=== PATIENT | male | born 1970 | race Caucasian/White ===

== ENCOUNTER 2020-08-17 05:54 | Day surgery (SDC) | payer BC ==
[2020-08-17] MEDS ORDERED: Lactated Ringers 1,000 ML IV SCH (06:30)
[2020-08-17] MEDS ORDERED: DIPRIVAN 200 MG/20 ML IV ONE ×2 (08:17→08:29)
[2020-08-17] MEDS ORDERED: Versed 2 MG/2 ML Injection ONE (08:17)
[2020-08-17 09:16] VITALS: O2SAT 98
[2020-08-17 09:38] VITALS: PULSE 72
[2020-08-17 09:49] VITALS: BP 132/68
--- NOTE | 2020-08-17 09:59 | OP ---
SURGERY DATE/TIME: 08/17/2020818 PREOPERATIVE DIAGNOSIS: Screening colonoscopy. POSTOPERATIVE DIAGNOSIS: Cecal polyp x1. PROCEDURE: Colonoscopy. SURGEON: Niraj Gallegos M.D. ANESTHESIA: MAC by Ra Pate CRNA. ESTIMATED BLOOD LOSS: Minimal. SPECIMENS: Hot forceps polypectomy from cecum. DESCRIPTION OF PROCEDURE: After informed written consent was obtained, the patient was taken to the endoscopy suite. He underwent monitored anesthesia and was placed in left lateral decubitus position. After adequate level of anesthesia was titrated to the desired level of consciousness, a digital rectal exam showed normal sphincter tone and no internal lesions. The scope was inserted into the rectum and sequentially the entire colonic mucosa was traversed. The cecum was reached and verified with direct visualization of ileocecal valve. There was a small sessile polyp in close proximity of the ileocecal valve. It was grasped with forceps, cauterized and removed in its entirety. It was removed in two pieces and sent for pathology testing with good hemostasis and complete removal of the lesion. Upon withdrawal careful mucosal inspection revealed no gross abnormalities. Prior to withdrawal retroflexion was performed and showed no internal lesions. The scope was removed and the patient was transferred to the recovery room in good condition.
== END 2020-08-17 09:40 | disposition home or self-care (01) ==
LOC: SDC 05:54
PROVIDERS: ATTEND Family Medicine
DX: Z12.11 Encounter for screening for malignant neoplasm of colon (principal); D12.0 Benign neoplasm of cecum
CPT/HCPCS: J2250; J2704

== ENCOUNTER 2022-09-16 02:11 | Inpatient (IN) | payer BC ==
[2022-09-16] MEDS ORDERED: SUBLIMAZE 100 MCG/2 ML IV ONE (02:41)
[2022-09-16] MEDS ORDERED: Sodium Chloride 0.9% 1000 ML 1,000 ML IV STA (02:41)
--- NOTE | 2022-09-16 02:47 | ERPHSYRPT ---
- History of Present Illness Time Seen by Provider: 09/16/22 02:44 Historian: patient Exam Limitations: no limitations Patient Subjective Stated Complaint: pt states he has been having pain in his rt lower abd since last night- approx 20 hours Triage Nursing Assessment: pt alert and oriented, answers questions approp. pt ambulatory with steady gait noted. respirations nonlabored. skin warm and dry. face flushed. abd soft, p[t reports tenderness to rt lower abd, no rebound tenderness noted. bowel sonds present x4. Physician History: Patient is 52-year-old male with significant past medical history of hypertension started having a right lower quadrant abdominal pain approximately 20 hours ago which started getting worse within 6 to 8 hours associated with fever and chills. Patient has 1 bowel movement approximately 4 to 5 hours ago which did not show any blood or pus. Patient denies any nausea or vomiting. Patient has somewhat loss of appetite. Timing/Duration: today Quality: cramping Abdominal Pain Onset Location: RLQ Pain Radiation: no radiation Severity of Pain-Max: moderate Severity of Pain-Current: moderate Modifying Factors: Improves With: nothing Associated Symptoms: loss of appetite Previous symptoms: no prior history Allergies/Adverse Reactions: No Known Drug Allergies Allergy (Verified 09/16/22 02:37) Home Medications: Lisinopril 20 mg [Zestril 20 MG] 20 mg PO DAILY 09/16/22 [History] Hx Tetanus, Diphtheria Vaccination/Date Given: Yes Hx Influenza Vaccination/Date Given: No Hx Pneumococcal Vaccination/Date Given: No Immunizations Up to Date: Yes Travel Risk - International Travel Have you traveled outside of the country in past 3 weeks: No - Coronavirus Screening Are you exhibiting any of the following symptoms?: No Close contact with a COVID-19 positive Pt in past 14-21 Days: No - Vaccine Status Have you recieved a Covid-19 vaccination: Yes 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: [email or web address] - Vaccination Dates Date of 2cond Vaccination (if applicable): 2020 - Review of Systems Constitutional: No Fever, No Chills Eyes: No Symptoms Ears, Nose, & Throat: No Symptoms Respiratory: No Cough, No Dyspnea Cardiac: No Chest Pain, No Edema, No Syncope Abdominal/Gastrointestinal: Abdominal Pain, Appetite Changes, No Nausea, No Vomiting, No Diarrhea Genitourinary Symptoms: No Dysuria Musculoskeletal: No Back Pain, No Neck Pain Skin: No Rash Neurological: No Dizziness, No Focal Weakness, No Sensory Changes Psychological: No Symptoms Endocrine: No Symptoms All Other Systems: Reviewed and Negative - Past Medical History Pertinent Past Medical History: Yes Neurological History: No Pertinent History ENT History: No Pertinent History Cardiac History: Hypertension Respiratory History: Sleep Apnea Endocrine Medical History: No Pertinent History Musculoskeletal History: No Pertinent History GI Medical History: No Pertinent History History: No Pertinent History Psycho-Social History: No Pertinent History Male Reproductive Disorders: No Pertinent History - Past Surgical History Past Surgical History: Yes Neuro Surgical History: No Pertinent History Cardiac: No Pertinent History Respiratory: No Pertinent History Gastrointestinal: Hernia Repair Genitourinary: No Pertinent History Musculoskeletal: Other Male Surgical History: No Pertinent History Other Surgical History: left bicep tendon, left knee - Social History Smoking Status: Former smoker Exposure to second hand smoke: No Drug Use: none Patient Lives Alone: No - Nursing Vital Signs Nursing Vital Signs: Initial Vital Signs Temperature 99.7 F 09/16/22 02:23 Pulse Rate 120 H 09/16/22 02:23 Respiratory Rate 18 09/16/22 02:23 Blood Pressure 133/82 09/16/22 02:23 O2 Sat by Pulse Oximetry 95 09/16/22 02:23 Pain Scale Pain Intensity 0 - Physical Exam General Appearance: no apparent distress, alert Eye Exam: PERRL/EOMI, eyes nml inspection Ears, Nose, Throat Exam: normal ENT inspection, pharynx normal, moist mucous membranes Neck Exam: normal inspection, non-tender, supple, full range of motion Respiratory Exam: normal breath sounds, lungs clear, No respiratory distress Cardiovascular Exam: regular rate/rhythm, normal heart sounds Gastrointestinal/Abdomen Exam: tenderness (right lower quadrant), guarding (R LQ), No distention, No mass Back Exam: normal inspection, normal range of motion, No CVA tenderness, No vertebral tenderness Extremity Exam: normal inspection, normal range of motion, pelvis stable Neurologic Exam: alert, oriented x 3, cooperative, normal mood/affect, nml cerebellar function, sensation nml, No motor deficits Skin Exam: normal color, warm, dry SpO2: 95 - Course Nursing assessment & vital signs reviewed: Yes - CT Exams Abdomen/Pelvis CT Interpretation: Tele-radiologist Report Ordered Tests: Active Orders 24 hr Category Date Time Status ABDOMEN AND PELVIS W/0 CONTRAS [CT] Stat Exams 09/16/22 02:42 Taken AMYLASE Stat Lab 09/16/22 02:45 Completed CBC W DIFF Stat Lab 09/16/22 02:45 Completed CMP Stat Lab 09/16/22 02:45 Completed LIPASE Stat Lab 09/16/22 02:45 Completed UA W/RFX UR CULTURE Stat Lab 09/16/22 02:45 Completed Medication Summary Discontinued Medications Generic Name Dose Route Start Last Admin Trade Name Patrickq PRN Reason Stop Dose Admin Fentanyl Citrate 50 mcg 09/16/22 02:41 09/16/22 02:52 Fentanyl Citrate 100 Mcg/2 Ml* Vial IV 09/16/22 02:42 50 mcg STAT ONE Administration Fentanyl Citrate Confirm 09/16/22 02:51 Fentanyl Citrate 100 Mcg/2 Ml* Vial Administered 09/16/22 02:52 Dose 100 mcg .ROUTE .STK-MED ONE Hydromorphone HCl Confirm 09/16/22 03:41 Hydromorphone 1 Mg/1ml Inj 1 Mg/Ml Syringe Administered 09/16/22 03:42 Dose 1 mg .ROUTE .STK-MED ONE Hydromorphone HCl 1 mg 09/16/22 03:44 09/16/22 03:47 Hydromorphone 1 Mg/1ml Inj 1 Mg/Ml Syringe IV 09/16/22 03:45 1 mg STAT ONE Administration Sodium Chloride 1,000 mls @ 999 mls/hr 09/16/22 02:41 09/16/22 02:53 Sodium Chloride 0.9% 1000 Ml IV 09/16/22 03:41 999 mls/hr .Q1H1M STA Administration Sodium Chloride Confirm 09/16/22 02:51 Sodium Chloride 0.9% 1000 Ml Administered 09/16/22 02:52 Dose 1,000 mls @ ud .ROUTE .STK-MED ONE Ceftriaxone Sodium/Dextrose 1 g in 50 mls @ 100 mls/hr 09/16/22 03:59 09/16/22 04:04 Rocephin 1 Gm-D5w 50 Ml Bag IV 09/16/22 04:28 100 mls/hr STAT STA 100 mls/hr Administration Ceftriaxone Sodium/Dextrose Confirm 09/16/22 04:02 Rocephin 1 Gm-D5w 50 Ml Bag Administered 09/16/22 04:03 Dose 1 g in 50 mls @ ud IV .[facility] ONE Lab/Rad Data: Laboratory Result Diagrams 09/16/22 02:45 09/16/22 02:45 Laboratory Results 09/16/22 09/16/22 09/16/22 Range/Units 03:30 02:45 02:45 WBC (4.0-10.5) x10^3/uL RBC (4.1-5.6) x10^6/uL Hgb (12.5-18.0) g/dL Hct (42-50) % MCV (78-100) fL MCH (26-32) pg MCHC (32-36) g/dL RDW (11.5-14.0) % Plt Count (150-450) x10^3/uL MPV (7.5-11.0) fL Gran % (36.0-66.0) % Immature Gran % (Auto) (0.00-0.4) % Nucleat RBC Rel Count (0.00-0.1) % Eos # (Auto) (0-0.5) x10^3/uL Immature Gran # (Auto) (0.00-0.03) x10^3u/L Absolute Lymphs (auto) (1.0-4.6) x10^3/uL Absolute Monos (auto) (0.0-1.3) x10^3/uL Absolute Nucleated RBC (0.00-0.01) x10^3u/L Lymphocytes % (24.0-44.0) % Monocytes % (0.0-12.0) % Eosinophils % (0.00-5.0) % Basophils % (0.0-0.4) % Absolute Granulocytes (1.4-6.9) x10^3/uL Basophils # (0-0.4) x10^3/uL Sodium 135 L (137-145) mmol/L Potassium 3.9 (3.5-5.1) mmol/L Chloride 105 (98-107) mmol/L Carbon Dioxide 21 L (22-30) mmol/L Anion Gap 13.3 (5-15) MEQ/L BUN 16 (9-20) mg/dL Creatinine 0.96 (0.66-1.25) mg/dL Estimated GFR > 60.0 ML/MIN Glucose 155 H (74-106) mg/dL Calcium 8.9 (8.4-10.2) mg/dL Total Bilirubin 0.70 (0.2-1.3) mg/dL AST 33 (17-59) U/L ALT 41 (0-50) U/L Alkaline Phosphatase 77 (38-126) U/L Serum Total Protein 7.4 (6.3-8.2) g/dL Albumin 4.2 (3.5-5.0) g/dL Amylase 80 (30-110) U/L Lipase 168 (23-300) U/L Urine Color Yellow (Yellow) Urine Appearance Clear (Clear) Urine pH 5.5 (4.6-8.0) Ur Specific [place] 1.025 (1.005-1.030) Urine Protein Trace A (Negative) Urine Glucose (UA) Negative (Negative) mg/dL Urine Ketones Negative (Negative) Urine Blood Negative (Negative) Urine Nitrite Negative (Negative) Urine Bilirubin Negative (Negative) Urine Urobilinogen 0.2 (0.2) mg/dL Ur Leukocyte Esterase Negative (Negative) U Hyaline Cast (Auto) NONE SEEN (0-2) /LPF Urine Microscopic RBC 0-2 (0-5) /HPF Urine Microscopic WBC 0-2 (0-5) /HPF Ur Epithelial Cells None Seen (None Seen) /HPF Urine Bacteria None Seen (None Seen) /HPF Urine Culture Reflexed NO (NO) Influenza Type A Ag NEGATIVE (NEGATIVE) Influenza Type B Ag NEGATIVE (NEGATIVE) RSV (PCR) NEGATIVE (Negative) SARS-CoV-2 (PCR) NEGATIVE (NEGATIVE) 09/16/22 Range/Units 02:45 WBC 15.2 H (4.0-10.5) x10^3/uL RBC 4.52 (4.1-5.6) x10^6/uL Hgb 13.8 (12.5-18.0) g/dL Hct 40.8 L (42-50) % MCV 90.3 (78-100) fL MCH 30.5 (26-32) pg MCHC 33.8 (32-36) g/dL RDW 12.4 (11.5-14.0) % Plt Count 244 (150-450) x10^3/uL MPV 10.3 (7.5-11.0) fL Gran % 85.9 H (36.0-66.0) % Immature Gran % (Auto) 0.5 H (0.00-0.4) % Nucleat RBC Rel Count 0.0 (0.00-0.1) % Eos # (Auto) 0 (0-0.5) x10^3/uL Immature Gran # (Auto) 0.07 H (0.00-0.03) x10^3u/L Absolute Lymphs (auto) 1.20 (1.0-4.6) x10^3/uL Absolute Monos (auto) 0.81 (0.0-1.3) x10^3/uL Absolute Nucleated RBC 0.00 (0.00-0.01) x10^3u/L Lymphocytes % 7.9 L (24.0-44.0) % Monocytes % 5.3 (0.0-12.0) % Eosinophils % 0.0 (0.00-5.0) % Basophils % 0.4 (0.0-0.4) % Absolute Granulocytes 13.05 H (1.4-6.9) x10^3/uL Basophils # 0.06 (0-0.4) x10^3/uL Sodium (137-145) mmol/L Potassium (3.5-5.1) mmol/L Chloride (98-107) mmol/L Carbon Dioxide (22-30) mmol/L Anion Gap (5-15) MEQ/L BUN (9-20) mg/dL Creatinine (0.66-1.25) mg/dL Estimated GFR ML/MIN Glucose (74-106) mg/dL Calcium (8.4-10.2) mg/dL Total Bilirubin (0.2-1.3) mg/dL AST (17-59) U/L ALT (0-50) U/L Alkaline Phosphatase (38-126) U/L Serum Total Protein (6.3-8.2) g/dL Albumin (3.5-5.0) g/dL Amylase (30-110) U/L Lipase (23-300) U/L Urine Color (Yellow) Urine Appearance (Clear) Urine pH (4.6-8.0) Ur Specific [place] (1.005-1.030) Urine Protein (Negative) Urine Glucose (UA) (Negative) mg/dL Urine Ketones (Negative) Urine Blood (Negative) Urine Nitrite (Negative) Urine Bilirubin (Negative) Urine Urobilinogen (0.2) mg/dL Ur Leukocyte Esterase (Negative) U Hyaline Cast (Auto) (0-2) /LPF Urine Microscopic RBC (0-5) /HPF Urine Microscopic WBC (0-5) /HPF Ur Epithelial Cells (None Seen) /HPF Urine Bacteria (None Seen) /HPF Urine Culture Reflexed (NO) Influenza Type A Ag (NEGATIVE) Influenza Type B Ag (NEGATIVE) RSV (PCR) (Negative) SARS-CoV-2 (PCR) (NEGATIVE) - Progress Progress: unchanged Discussed with Dr.: Other (Dr Rony Wilson) Counseled pt/family regarding: lab results, diagnosis, need for follow-up, rad results Medical Desision Making - Discussion of managment Reviewed:: Test results, Need for additional workup Agreed on:: Treatment plan, need for follow-up, place in obs Will see patient: in hospital - Diagnostic Testing Diagnostic test were ordered, analyzed, and reviewed by me: Yes Radiological Interpretation: Discussed w/ radiologist - Risk of complications The pt has a mod risk of morbidity or mortality based on: Need for minor surgical intervention in patient with know risk factors - Departure Departure Disposition: Observation Clinical Impression: Acute appendicitis Qualifiers: Acute appendicitis type: with localized peritonitis Appendicitis gangrene presence: without gangrene Appendicitis perforation presence: without perforation Appendicitis abscess presence: without abscess Qualified Code(s): K35.30 - Acute appendicitis with localized peritonitis, without perforation or gangrene Condition: Stable Critical Care Time: Yes Critical Care Time(excluding separately billable procedures): Critical 30-74 mins Referrals: GHADA DONAHUE MD [Primary Care Provider] - Follow up/PCP as directed Instructions: Appendicitis in Adults
[2022-09-16 02:48] LABS: Absolute Neutrophil Ct (ANC) 13.05 x10^3/uL (1.4-6.9); BASOPHIL % 0.4 % (0.0-0.4); Basophil (Absolute #) 0.06 x10^3/uL (0-0.4); Eosinophil (Absolute #) 0 x10^3/uL (0-0.5); Hematocrit 40.8 % (42-50); Hemoglobin 13.8 g/dL (12.5-18.0); IMMATURE GRAN # 0.07 x10^3u/L (0.00-0.03); IMMATURE GRAN % 0.5 % (0.00-0.4); Lymphocytes % 7.9 % (24.0-44.0); Mean Cell Volume 90.3 fL (78-100); Mean Corpuscular Hemoglobin 30.5 pg (26-32); Mean Corpuscular Hgb Concent. 33.8 g/dL (32-36); Mean Platelet Volume 10.3 fL (7.5-11.0); Monocyte (Absolute #) 0.81 x10^3/uL (0.0-1.3); Monocytes % 5.3 % (0.0-12.0); Neutrophil % 85.9 % (36.0-66.0); Platelet Count 244 x10^3/uL (150-450); Red Blood Count 4.52 x10^6/uL (4.1-5.6); Red Cell Distribution Width 12.4 % (11.5-14.0); White Blood Count 15.2 x10^3/uL (4.0-10.5)
[2022-09-16] MEDS ORDERED: Sodium Chloride 0.9% 1000 ML 1,000 ML ONE (02:51)
[2022-09-16] MEDS ORDERED: SUBLIMAZE 100 MCG/2 ML ONE (02:51)
[2022-09-16 02:54] LABS: ALBUMIN 4.2 g/dL (3.5-5.0); ALKALINE PHOSPHATASE 77 U/L (38-126); AMYLASE 80 U/L (30-110); ANION GAP 13.3 MEQ/L (5-15); BLOOD UREA NITROGEN 16 mg/dL (9-20); CHLORIDE 105 mmol/L (98-107); Calcium 8.9 mg/dL (8.4-10.2); Carbon Dioxide 21 mmol/L (22-30); Creatinine 1 0.96 mg/dL (0.66-1.25); EST GLOMERULAR FILTRATION RATE > 60.0 ML/MIN; Glucose 155 mg/dL (74-106); LIPASE 168 U/L (23-300); Potassium 3.9 mmol/L (3.5-5.1); SGOT/AST 33 U/L (17-59); SGPT/ALT 41 U/L (0-50); SODIUM 135 mmol/L (137-145); Total Protein 7.4 g/dL (6.3-8.2)
[2022-09-16 02:55] LABS: Appearance Clear (Clear); Bacteria None Seen /HPF (None Seen); Bilirubin Negative (Negative); Blood Negative (Negative); Epithelial Cells None Seen /HPF (None Seen); Glucose, Urine Negative (Negative); Hyaline Casts NONE SEEN /LPF (0-2); Ketones Negative (Negative); Leukocyte Esterase Negative (Negative); Nitrite Negative (Negative); Ph 5.5 (4.6-8.0); Protein,Urine Dip Trace (Negative); RBC 0-2 /HPF (0-5); Specific Gravity 1.025 (1.005-1.030); Urobilinogen 0.2 mg/dL (0.2); WBC 0-2 /HPF (0-5)
[2022-09-16 03:07] LABS: ADD URINE CULTURE? NO (NO)
[2022-09-16] MEDS ORDERED: Hydromorphone 1 mg/ml Injection ONE ×2 (03:41→13:06)
[2022-09-16] MEDS ORDERED: Hydromorphone 1 mg/ml Injection IV ONE (03:44)
[2022-09-16] MEDS ORDERED: ROCEPHIN 1 Gm-D5w 50 ml Bag** 1 G/50 ML IVPB IV STA (03:59)
[2022-09-16] MEDS ORDERED: ROCEPHIN 1 Gm-D5w 50 ml Bag** 1 G/50 ML IVPB IV ONE (04:02)
[2022-09-16 04:09] LABS: INFLUENZA A NEGATIVE (NEGATIVE); INFLUENZA B NEGATIVE (NEGATIVE); RESPIRATORY SYNCTIAL VIRUS NEGATIVE (Negative); SARS-CoV-2 Xpert Express NEGATIVE (NEGATIVE)
[2022-09-16] MEDS ORDERED: Zofran 4 MG/2 ML VIAL IV PRN (05:16)
[2022-09-16] MEDS ORDERED: PIPERACILLIN/TAZOBACTAM IV ONE (05:59)
[2022-09-16] MEDS ORDERED: Sodium Chloride 100ML MINI-BAG PLUS 100 ML IV ONE (06:00)
[2022-09-16] MEDS: PIPERACILLIN/TAZOBACTAM 3.375 GM in Sodium Chloride 100ML MINI-BAG PLUS 100 ML IV SCH ×4 (06:11→23:49)
[2022-09-16] MEDS: Sodium Chloride 0.9% 1000 ML 1,000 ML IV SCH ×2 (06:12→13:47)
[2022-09-16] MEDS: Hydromorphone 1 mg/ml Injection IV PRN ×2 (06:37→10:02)
--- NOTE | 2022-09-16 08:48 | XRAY ---
Indication: Right lower quadrant pain. Fever, nausea, and chills. Multiple contiguous images obtained through the abdomen and pelvis without contrast. Comparison: None Lung bases demonstrates small right lower lobe calcified granuloma. No infiltrate or effusion. Heart not enlarged. Stomach distended with food/fluid. Noncontrasted stomach and bowel loops appear nonobstructed. Abnormal prominent appendix up to 1.5 cm with periappendiceal stranding and tiny free fluid favoring acute appendicitis. Base of appendix demonstrates small appendicolith. No walled off fluid collection or free air. Incidental diffuse fatty liver and 5.2 cm left renal cyst. Remaining liver, gallbladder, pancreas, spleen, adrenal glands, kidneys, ureters, and bladder are unremarkable for noncontrast exam. Minimal aortoiliac calcifications without AAA. Osseous structures intact with minimal degenerative changes throughout the thoracolumbar spine. Impression: 1. CT findings favoring acute appendicitis. 2. Incidental fatty liver, left renal cyst, and old granulomatous disease. Comment: Preliminary interpretation made by C. No critical discrepancy.
[2022-09-16] MEDS ORDERED: MEFOXIN 2 GM PREMIX** 2 GM/50 ML ML IV SCH (10:00)
[2022-09-16] MEDS ORDERED: SUBLIMAZE 250 MCG/5 ML ONE (10:41)
[2022-09-16] MEDS ORDERED: Sensorcaine 0.25% 10 ML ONE ×2 (10:41→11:37)
[2022-09-16] MEDS ORDERED: Xylocaine-Mpf 2% 5 Ml Vial ONE (10:43)
[2022-09-16] MEDS ORDERED: TORAdol 30 mg Injection ONE (10:43)
[2022-09-16] MEDS ORDERED: Decadron 4 MG INJ ONE (10:43)
[2022-09-16] MEDS ORDERED: Zofran 4 MG/2 ML VIAL ONE (10:43)
[2022-09-16] MEDS ORDERED: Zemuron 100 MG/10 ML ONE ×3 (10:43→11:25)
[2022-09-16] MEDS ORDERED: BRIDION 200MG/2ML IV ONE (10:43)
[2022-09-16] MEDS ORDERED: DIPRIVAN 200 MG/20 ML IV ONE (10:43)
--- NOTE | 2022-09-16 11:04 | PCM.CONS ---
History of Present Illness - Reason for Consult Chief Complaint: acute appendicitis Requesting Provider: GHADA DONAHUE Consulting Provider: TONY WAKEFIELD MD History of Present Illness: is a 52 year old male. hx per chart review and d/w pt 2/18 am. started having abdominal pain migrated to RLQ. subjective fever chills at home. nausea. no emesis. to ED. workup with ct confirmed appendicitis. "Patient Subjective Stated Complaint: pt states he has been having pain in his rt lower abd since last night- approx 20 hours Triage Nursing Assessment: pt alert and oriented, answers questions approp. pt ambulatory with steady gait noted. respirations nonlabored. skin warm and dry. face flushed. abd soft, p[t reports tenderness to rt lower abd, no rebound tenderness noted. bowel sonds present x4. Physician History: Patient is 52-year-old male with significant past medical history of hypertension started having a right lower quadrant abdominal pain approximately 20 hours ago which started getting worse within 6 to 8 hours associated with fever and chills. Patient has 1 bowel movement approximately 4 to 5 hours ago which did not show any blood or pus. Patient denies any nausea or vomiting. Patient has somewhat loss of appetite. Timing/Duration: today Quality: cramping Abdominal Pain Onset Location: RLQ Pain Radiation: no radiation Severity of Pain-Max: moderate Severity of Pain-Current: moderate Modifying Factors: Improves With: nothing Associated Symptoms: loss of appetite Previous symptoms: no prior history Allergies/Adverse Reactions: No Known Drug Allergies Allergy (Verified 09/16/22 02:37) Home Medications: Lisinopril 20 mg [Zestril 20 MG] 20 mg PO DAILY 09/16/22 [History] Hx Tetanus, Diphtheria Vaccination/Date Given: Yes Hx Influenza Vaccination/Date Given: No Hx Pneumococcal Vaccination/Date Given: No Immunizations Up to Date: Yes" Medications & Allergies Home Medications: Home Medication List Lisinopril 20 mg [Zestril 20 MG] 20 mg PO DAILY 09/16/22 [History Confirmed 09/16/22] Allergies/Adverse Reactions: Allergies Allergy/AdvReac Type Severity Reaction Status Date / Time No Known Drug Allergies Allergy Verified 09/16/22 02:37 - Past Medical History Past Medical History: Yes Neurological History: No Pertinent History ENT History: No Pertinent History Cardiac History: Hypertension Respiratory History: Sleep Apnea Endocrine Medical History: No Pertinent History Musculoskelatal History: No Pertinent History GI Medical History: No Pertinent History History: No Pertinent History Pyscho-Social History: No Pertinent History Male Reproductive Disorders: No Pertinent History - Past Surgical History Past Surgical History: Yes Neuro Surgical History: No Pertinent History Cardiac History: No Pertinent History Respiratory Surgery: No Pertinent History GI Surgical History: Hernia Repair Genitourinary Surgical Hx: No Pertinent History Musculskeletal Surgical Hx: Other Male Surgical History: No Pertinent History Other Surgical History: left bicep tendon, left knee - Social History Smoking Status: Former smoker Exposure to second hand smoke: No Alcohol: Occasionally Drug Use: none - Physical Exam Vital Signs: Vital Signs - 24 hr Temp Pulse Resp BP Pulse Ox 09/16/22 08:00 97.7 F 98 H 18 128/68 93 L 09/16/22 06:52 97.7 F 98 H 18 128/68 93 L 09/16/22 05:41 97.7 F 98 H 18 128/68 93 L 09/16/22 05:15 95 09/16/22 05:00 89 20 103/58 94 L 09/16/22 04:00 100 H 18 120/78 94 L 09/16/22 03:12 105 H 20 122/75 94 L 09/16/22 02:23 99.7 F 120 H 18 133/82 95 Neurologic Exam: alert, oriented x 3 Eye Exam: eyes nml inspection, No scleral icterus Neck Exam: normal inspection Respiratory Exam: No respiratory distress Cardiovascular Exam: regular rate/rhythm Gastrointestinal/Abdomen Exam: soft Extremity Exam: normal inspection Skin Exam: warm, dry (abd nd, soft, localized guarding and rebound RLQ.) Results - Labs Lab/Micro Results: Lab Results-Last 24 Hours 09/16/22 09/16/22 09/16/22 Range/Units 02:45 02:45 02:45 WBC 15.2 H (4.0-10.5) x10^3/uL RBC 4.52 (4.1-5.6) x10^6/uL Hgb 13.8 (12.5-18.0) g/dL Hct 40.8 L (42-50) % MCV 90.3 (78-100) fL MCH 30.5 (26-32) pg MCHC 33.8 (32-36) g/dL RDW 12.4 (11.5-14.0) % Plt Count 244 (150-450) x10^3/uL MPV 10.3 (7.5-11.0) fL Gran % 85.9 H (36.0-66.0) % Immature Gran % (Auto) 0.5 H (0.00-0.4) % Nucleat RBC Rel Count 0.0 (0.00-0.1) % Eos # (Auto) 0 (0-0.5) x10^3/uL Immature Gran # (Auto) 0.07 H (0.00-0.03) x10^3u/L Absolute Lymphs (auto) 1.20 (1.0-4.6) x10^3/uL Absolute Monos (auto) 0.81 (0.0-1.3) x10^3/uL Absolute Nucleated RBC 0.00 (0.00-0.01) x10^3u/L Lymphocytes % 7.9 L (24.0-44.0) % Monocytes % 5.3 (0.0-12.0) % Eosinophils % 0.0 (0.00-5.0) % Basophils % 0.4 (0.0-0.4) % Absolute Granulocytes 13.05 H (1.4-6.9) x10^3/uL Basophils # 0.06 (0-0.4) x10^3/uL Sodium 135 L (137-145) mmol/L Potassium 3.9 (3.5-5.1) mmol/L Chloride 105 (98-107) mmol/L Carbon Dioxide 21 L (22-30) mmol/L Anion Gap 13.3 (5-15) MEQ/L BUN 16 (9-20) mg/dL Creatinine 0.96 (0.66-1.25) mg/dL Estimated GFR > 60.0 ML/MIN Glucose 155 H (74-106) mg/dL Calcium 8.9 (8.4-10.2) mg/dL Total Bilirubin 0.70 (0.2-1.3) mg/dL AST 33 (17-59) U/L ALT 41 (0-50) U/L Alkaline Phosphatase 77 (38-126) U/L Serum Total Protein 7.4 (6.3-8.2) g/dL Albumin 4.2 (3.5-5.0) g/dL Amylase 80 (30-110) U/L Lipase 168 (23-300) U/L Urine Color Yellow (Yellow) Urine Appearance Clear (Clear) Urine pH 5.5 (4.6-8.0) Ur Specific [place] 1.025 (1.005-1.030) Urine Protein Trace A (Negative) Urine Glucose (UA) Negative (Negative) mg/dL Urine Ketones Negative (Negative) Urine Blood Negative (Negative) Urine Nitrite Negative (Negative) Urine Bilirubin Negative (Negative) Urine Urobilinogen 0.2 (0.2) mg/dL Ur Leukocyte Esterase Negative (Negative) U Hyaline Cast (Auto) NONE SEEN (0-2) /LPF Urine Microscopic RBC 0-2 (0-5) /HPF Urine Microscopic WBC 0-2 (0-5) /HPF Ur Epithelial Cells None Seen (None Seen) /HPF Urine Bacteria None Seen (None Seen) /HPF Urine Culture Reflexed NO (NO) Influenza Type A Ag (NEGATIVE) Influenza Type B Ag (NEGATIVE) RSV (PCR) (Negative) SARS-CoV-2 (PCR) (NEGATIVE) 09/16/22 Range/Units 03:30 WBC (4.0-10.5) x10^3/uL RBC (4.1-5.6) x10^6/uL Hgb (12.5-18.0) g/dL Hct (42-50) % MCV (78-100) fL MCH (26-32) pg MCHC (32-36) g/dL RDW (11.5-14.0) % Plt Count (150-450) x10^3/uL MPV (7.5-11.0) fL Gran % (36.0-66.0) % Immature Gran % (Auto) (0.00-0.4) % Nucleat RBC Rel Count (0.00-0.1) % Eos # (Auto) (0-0.5) x10^3/uL Immature Gran # (Auto) (0.00-0.03) x10^3u/L Absolute Lymphs (auto) (1.0-4.6) x10^3/uL Absolute Monos (auto) (0.0-1.3) x10^3/uL Absolute Nucleated RBC (0.00-0.01) x10^3u/L Lymphocytes % (24.0-44.0) % Monocytes % (0.0-12.0) % Eosinophils % (0.00-5.0) % Basophils % (0.0-0.4) % Absolute Granulocytes (1.4-6.9) x10^3/uL Basophils # (0-0.4) x10^3/uL Sodium (137-145) mmol/L Potassium (3.5-5.1) mmol/L Chloride (98-107) mmol/L Carbon Dioxide (22-30) mmol/L Anion Gap (5-15) MEQ/L BUN (9-20) mg/dL Creatinine (0.66-1.25) mg/dL Estimated GFR ML/MIN Glucose (74-106) mg/dL Calcium (8.4-10.2) mg/dL Total Bilirubin (0.2-1.3) mg/dL AST (17-59) U/L ALT (0-50) U/L Alkaline Phosphatase (38-126) U/L Serum Total Protein (6.3-8.2) g/dL Albumin (3.5-5.0) g/dL Amylase (30-110) U/L Lipase (23-300) U/L Urine Color (Yellow) Urine Appearance (Clear) Urine pH (4.6-8.0) Ur Specific [place] (1.005-1.030) Urine Protein (Negative) Urine Glucose (UA) (Negative) mg/dL Urine Ketones (Negative) Urine Blood (Negative) Urine Nitrite (Negative) Urine Bilirubin (Negative) Urine Urobilinogen (0.2) mg/dL Ur Leukocyte Esterase (Negative) U Hyaline Cast (Auto) (0-2) /LPF Urine Microscopic RBC (0-5) /HPF Urine Microscopic WBC (0-5) /HPF Ur Epithelial Cells (None Seen) /HPF Urine Bacteria (None Seen) /HPF Urine Culture Reflexed (NO) Influenza Type A Ag NEGATIVE (NEGATIVE) Influenza Type B Ag NEGATIVE (NEGATIVE) RSV (PCR) NEGATIVE (Negative) SARS-CoV-2 (PCR) NEGATIVE (NEGATIVE) - Radiology Impressions Radiology Exams & Impressions: Radiology Procedures Category Date Time Status ABDOMEN AND PELVIS W/0 CONTRAS [CT] Stat Exams 09/16/22 02:42 Completed Assessment/Plan (1) Acute appendicitis Current Visit: Yes Status: Acute Qualifiers: Acute appendicitis type: with localized peritonitis Appendicitis gangrene presence: without gangrene Appendicitis perforation presence: without perforation Appendicitis abscess presence: without abscess Qualified Code(s): K35.30 - Acute appendicitis with localized peritonitis, without perforation or gangrene Assessment & Plan: 52[address] confirmed acute appendicitis. typical hx. localized guarding rebound on exam. CT on my read with acute apendicitis likely retrocecal without obvious perforation. to OR for lap appy. Code(s): K35.80 - UNSPECIFIED ACUTE APPENDICITIS
--- NOTE | 2022-09-16 16:04 | PCM.HP ---
History of Present Illness - Chief Complaint Chief Complaint: acute appendicitis History of Present Illness: is a 52 year old male patient of Dr Gallegos who presented to ER with RLQ abdominal pain and fever. ER evaluation revealed appendicitis and Dr Sky Wilson consulted and patient was taken to OR for appendectomy. Medications & Allergies Home Medications: Home Medication List Lisinopril 20 mg [Zestril 20 MG] 20 mg PO DAILY 09/16/22 [History Confirmed 09/16/22] Allergies/Adverse Reactions: Allergies Allergy/AdvReac Type Severity Reaction Status Date / Time No Known Drug Allergies Allergy Verified 09/16/22 02:37 - Past Medical History Past Medical History: Yes Neurological History: No Pertinent History ENT History: No Pertinent History Cardiac History: Hypertension Respiratory History: Sleep Apnea Endocrine Medical History: No Pertinent History Musculoskelatal History: No Pertinent History GI Medical History: No Pertinent History History: No Pertinent History Pyscho-Social History: No Pertinent History Male Reproductive Disorders: No Pertinent History - Past Surgical History Past Surgical History: Yes Neuro Surgical History: No Pertinent History Cardiac History: No Pertinent History Respiratory Surgery: No Pertinent History GI Surgical History: Hernia Repair Genitourinary Surgical Hx: No Pertinent History Musculskeletal Surgical Hx: Other Male Surgical History: No Pertinent History Other Surgical History: left bicep tendon, left knee - Social History Smoking Status: Former smoker Exposure to second hand smoke: No Alcohol: Occasionally Drug Use: none - Physical Exam Vital Signs: Vital Signs - 24 hr Temp Pulse Resp BP Pulse Ox 09/16/22 14:26 98.7 F 97 H 18 135/66 92 L 09/16/22 13:56 98.7 F 91 H 18 133/67 91 L 09/16/22 13:55 98.3 F 89 18 127/62 91 L 09/16/22 13:53 98.4 F 92 H 18 129/67 91 L 09/16/22 12:00 0 F 09/16/22 08:00 97.7 F 98 H 18 128/68 93 L 09/16/22 06:52 97.7 F 98 H 18 128/68 93 L 09/16/22 05:41 97.7 F 98 H 18 128/68 93 L 09/16/22 05:15 95 09/16/22 05:00 89 20 103/58 94 L 09/16/22 04:00 100 H 18 120/78 94 L 09/16/22 03:12 105 H 20 122/75 94 L 09/16/22 02:23 99.7 F 120 H 18 133/82 95 Results - Labs Lab/Micro Results: Lab Results-Last 24 Hours 09/16/22 09/16/22 09/16/22 Range/Units 02:45 02:45 02:45 WBC 15.2 H (4.0-10.5) x10^3/uL RBC 4.52 (4.1-5.6) x10^6/uL Hgb 13.8 (12.5-18.0) g/dL Hct 40.8 L (42-50) % MCV 90.3 (78-100) fL MCH 30.5 (26-32) pg MCHC 33.8 (32-36) g/dL RDW 12.4 (11.5-14.0) % Plt Count 244 (150-450) x10^3/uL MPV 10.3 (7.5-11.0) fL Gran % 85.9 H (36.0-66.0) % Immature Gran % (Auto) 0.5 H (0.00-0.4) % Nucleat RBC Rel Count 0.0 (0.00-0.1) % Eos # (Auto) 0 (0-0.5) x10^3/uL Immature Gran # (Auto) 0.07 H (0.00-0.03) x10^3u/L Absolute Lymphs (auto) 1.20 (1.0-4.6) x10^3/uL Absolute Monos (auto) 0.81 (0.0-1.3) x10^3/uL Absolute Nucleated RBC 0.00 (0.00-0.01) x10^3u/L Lymphocytes % 7.9 L (24.0-44.0) % Monocytes % 5.3 (0.0-12.0) % Eosinophils % 0.0 (0.00-5.0) % Basophils % 0.4 (0.0-0.4) % Absolute Granulocytes 13.05 H (1.4-6.9) x10^3/uL Basophils # 0.06 (0-0.4) x10^3/uL Sodium 135 L (137-145) mmol/L Potassium 3.9 (3.5-5.1) mmol/L Chloride 105 (98-107) mmol/L Carbon Dioxide 21 L (22-30) mmol/L Anion Gap 13.3 (5-15) MEQ/L BUN 16 (9-20) mg/dL Creatinine 0.96 (0.66-1.25) mg/dL Estimated GFR > 60.0 ML/MIN Glucose 155 H (74-106) mg/dL Calcium 8.9 (8.4-10.2) mg/dL Total Bilirubin 0.70 (0.2-1.3) mg/dL AST 33 (17-59) U/L ALT 41 (0-50) U/L Alkaline Phosphatase 77 (38-126) U/L Serum Total Protein 7.4 (6.3-8.2) g/dL Albumin 4.2 (3.5-5.0) g/dL Amylase 80 (30-110) U/L Lipase 168 (23-300) U/L Urine Color Yellow (Yellow) Urine Appearance Clear (Clear) Urine pH 5.5 (4.6-8.0) Ur Specific [place] 1.025 (1.005-1.030) Urine Protein Trace A (Negative) Urine Glucose (UA) Negative (Negative) mg/dL Urine Ketones Negative (Negative) Urine Blood Negative (Negative) Urine Nitrite Negative (Negative) Urine Bilirubin Negative (Negative) Urine Urobilinogen 0.2 (0.2) mg/dL Ur Leukocyte Esterase Negative (Negative) U Hyaline Cast (Auto) NONE SEEN (0-2) /LPF Urine Microscopic RBC 0-2 (0-5) /HPF Urine Microscopic WBC 0-2 (0-5) /HPF Ur Epithelial Cells None Seen (None Seen) /HPF Urine Bacteria None Seen (None Seen) /HPF Urine Culture Reflexed NO (NO) Influenza Type A Ag (NEGATIVE) Influenza Type B Ag (NEGATIVE) RSV (PCR) (Negative) SARS-CoV-2 (PCR) (NEGATIVE) 09/16/22 Range/Units 03:30 WBC (4.0-10.5) x10^3/uL RBC (4.1-5.6) x10^6/uL Hgb (12.5-18.0) g/dL Hct (42-50) % MCV (78-100) fL MCH (26-32) pg MCHC (32-36) g/dL RDW (11.5-14.0) % Plt Count (150-450) x10^3/uL MPV (7.5-11.0) fL Gran % (36.0-66.0) % Immature Gran % (Auto) (0.00-0.4) % Nucleat RBC Rel Count (0.00-0.1) % Eos # (Auto) (0-0.5) x10^3/uL Immature Gran # (Auto) (0.00-0.03) x10^3u/L Absolute Lymphs (auto) (1.0-4.6) x10^3/uL Absolute Monos (auto) (0.0-1.3) x10^3/uL Absolute Nucleated RBC (0.00-0.01) x10^3u/L Lymphocytes % (24.0-44.0) % Monocytes % (0.0-12.0) % Eosinophils % (0.00-5.0) % Basophils % (0.0-0.4) % Absolute Granulocytes (1.4-6.9) x10^3/uL Basophils # (0-0.4) x10^3/uL Sodium (137-145) mmol/L Potassium (3.5-5.1) mmol/L Chloride (98-107) mmol/L Carbon Dioxide (22-30) mmol/L Anion Gap (5-15) MEQ/L BUN (9-20) mg/dL Creatinine (0.66-1.25) mg/dL Estimated GFR ML/MIN Glucose (74-106) mg/dL Calcium (8.4-10.2) mg/dL Total Bilirubin (0.2-1.3) mg/dL AST (17-59) U/L ALT (0-50) U/L Alkaline Phosphatase (38-126) U/L Serum Total Protein (6.3-8.2) g/dL Albumin (3.5-5.0) g/dL Amylase (30-110) U/L Lipase (23-300) U/L Urine Color (Yellow) Urine Appearance (Clear) Urine pH (4.6-8.0) Ur Specific [place] (1.005-1.030) Urine Protein (Negative) Urine Glucose (UA) (Negative) mg/dL Urine Ketones (Negative) Urine Blood (Negative) Urine Nitrite (Negative) Urine Bilirubin (Negative) Urine Urobilinogen (0.2) mg/dL Ur Leukocyte Esterase (Negative) U Hyaline Cast (Auto) (0-2) /LPF Urine Microscopic RBC (0-5) /HPF Urine Microscopic WBC (0-5) /HPF Ur Epithelial Cells (None Seen) /HPF Urine Bacteria (None Seen) /HPF Urine Culture Reflexed (NO) Influenza Type A Ag NEGATIVE (NEGATIVE) Influenza Type B Ag NEGATIVE (NEGATIVE) RSV (PCR) NEGATIVE (Negative) SARS-CoV-2 (PCR) NEGATIVE (NEGATIVE) - Radiology Impressions Radiology Exams & Impressions: Radiology Procedures Category Date Time Status ABDOMEN AND PELVIS W/0 CONTRAS [CT] Stat Exams 09/16/22 02:42 Completed
[2022-09-16] MEDS: CLARITIN 10 MG PO SCH (16:19)
[2022-09-16] MEDS: Zestril 20 MG PO SCH (16:19)
[2022-09-16] MEDS: ULTRAM 50 MG PO PRN ×2 (17:07→21:12)
[2022-09-17] MEDS: Sodium Chloride 0.9% 1000 ML 1,000 ML IV SCH ×3 (00:52→22:16)
[2022-09-17] MEDS: NORCO 5/325 MG PO PRN ×4 (01:05→20:05)
[2022-09-17 04:58] LABS: Absolute Neutrophil Ct (ANC) 12.73 x10^3/uL (1.4-6.9); BASOPHIL % 0.2 % (0.0-0.4); Basophil (Absolute #) 0.03 x10^3/uL (0-0.4); Eosinophil (Absolute #) 0 x10^3/uL (0-0.5); Hematocrit 36.5 % (42-50); Hemoglobin 11.8 g/dL (12.5-18.0); IMMATURE GRAN # 0.07 x10^3u/L (0.00-0.03); IMMATURE GRAN % 0.5 % (0.00-0.4); Lymphocyte (Absolute #) 1.16 x10^3/uL (1.0-4.6); Lymphocytes % 7.5 % (24.0-44.0); Mean Cell Volume 92.9 fL (78-100); Mean Corpuscular Hgb Concent. 32.3 g/dL (32-36); Mean Platelet Volume 10.5 fL (7.5-11.0); Monocyte (Absolute #) 1.43 x10^3/uL (0.0-1.3); Monocytes % 9.3 % (0.0-12.0); Neutrophil % 82.5 % (36.0-66.0); Platelet Count 200 x10^3/uL (150-450); Red Blood Count 3.93 x10^6/uL (4.1-5.6); Red Cell Distribution Width 13.1 % (11.5-14.0); White Blood Count 15.4 x10^3/uL (4.0-10.5)
[2022-09-17] MEDS: PIPERACILLIN/TAZOBACTAM 3.375 GM in Sodium Chloride 100ML MINI-BAG PLUS 100 ML IV SCH ×3 (05:16→17:02)
[2022-09-17] MEDS: ULTRAM 50 MG PO PRN ×3 (05:43→18:42)
[2022-09-17 06:17] LABS: ALBUMIN 3.6 g/dL (3.5-5.0); ALKALINE PHOSPHATASE 55 U/L (38-126); ANION GAP 12.2 MEQ/L (5-15); BLOOD UREA NITROGEN 13 mg/dL (9-20); CHLORIDE 106 mmol/L (98-107); Calcium 7.9 mg/dL (8.4-10.2); Carbon Dioxide 23 mmol/L (22-30); Creatinine 1 1.02 mg/dL (0.66-1.25); EST GLOMERULAR FILTRATION RATE > 60.0 ML/MIN; Glucose 137 mg/dL (74-106); Potassium 4.2 mmol/L (3.5-5.1); SGOT/AST 25 U/L (17-59); SGPT/ALT 32 U/L (0-50); SODIUM 137 mmol/L (137-145); Total Protein 6.6 g/dL (6.3-8.2)
[2022-09-17] MEDS: CLARITIN 10 MG PO SCH (09:20)
[2022-09-17] MEDS: Zestril 20 MG PO SCH (09:20)
--- NOTE | 2022-09-17 14:13 | OP ---
SURGERY DATE/TIME: 09/16/2022 1100 PREOPERATIVE DIAGNOSIS: Acute appendicitis. POSTOPERATIVE DIAGNOSES: Acute appendicitis, ruptured. PROCEDURE: Laparoscopic appendectomy. SURGEON: Ramón Wilson M.D. ANESTHESIA: General. ESTIMATED BLOOD LOSS: Minimal. CONDITION: Patient condition stable. COMPLICATIONS: None. SPECIMEN: Appendix. HISTORY: The patient is a 52-year-old male who presents with one day history of abdominal pain migrating to right lower quadrant. CT scan confirmed appendicitis appears retrocecal. Discussion with the patient the risk of infection, bleeding, hernia, injury to nearby structure and he elected to proceed. FINDINGS: Retrocecal ruptured appendicitis all contained retrocecal with fecalith. The base was healthy. DESCRIPTION OF PROCEDURE: The patient was brought to the operating room. General anesthesia induced. Routinely positioned. Prepped, draped, time out performed. Received preoperative antibiotic. Veress needle inserted in left upper quadrant. Pneumoperitoneum established. A 5 mm umbilical OptiView trocar placed. 12 mm left lower quadrant placed, 5 mm suprapubic trocar placed. Abdomen surveyed. There was some reactive fluid in the pelvis suctioned out. The right lower quadrant is inflamed. The appendix is retrocecal and dissected out and it is perforated retrocecal. The base of the appendix does appear healthy. The mesentery had been taken with LigaSure and the base taken with white load DANYA stapler. The specimen is placed in specimen bag and removed through the 12 trocar site. There was also a little fecalith which was placed in a specimen bag and removed through the 12 trocar site. Staple line appeared healthy. There is good hemostasis and satisfactory. It had been irrigated out, suctioned out. A 7 mm drain is placed and brought out the suprapubic port site and the 12 trocar site closed with 0 Vicryl interrupted suture passer. Marcaine had been injected in all the port sites. Skin closed with 4-0 Vicryl sutures. Steri-Strips and sterile dressing applied. All counts were correct. The patient tolerated the procedure well. Plan for extubation.
[2022-09-17] MEDS: Mylicon 80MG PO PRN ×2 (14:59→20:05)
--- NOTE | 2022-09-17 18:23 | PCM.NOTE ---
Date and Time: 09/17/221819 Subjective Assessment: Pt is having some abd pain, "gas pain." Had passed flatus. Anna CLD. Pain 5/10 now (just moved around in ). He does become comfortable some times. Up with standby assist. - Review of Systems Constitutional: No Fever Abdominal/Gastrointestinal: Abdominal Pain Objective Exam General Appearance: no apparent distress, obese, other (working on his laptop in bed) Neurologic Exam: alert, oriented x 3, cooperative Skin Exam: normal color, warm, dry, No rash Eye Exam: eyes nml inspection Ears, Nose, Throat Exam: moist mucous membranes Neck Exam: normal inspection Respiratory Exam: normal breath sounds, lungs clear, No crackles/rales, No rhonc hi, No wheezing Cardiovascular Exam: regular rate/rhythm, normal heart sounds, No murmur Gastrointestinal/Abdomen Exam: soft, tenderness (generalized, mild), distention, other (surgical sites are c/d/i), No normal bowel sounds (high pitched), No mass, No guarding, No rebound Extremity Exam: normal inspection, No pedal edema, No swelling Back Exam: normal inspection, No rash OBJECTIVE DATA Vital Signs: Vital Signs - 24 hr Temp Pulse Resp BP Pulse Ox 09/17/22 16:22 98.0 F 87 16 137/67 93 L 09/17/22 10:57 98.2 F 83 16 117/67 91 L 09/17/22 09:18 81 17 121/66 09/17/22 07:58 975 F 74 18 108/58 92 L 09/17/22 04:00 97.9 F 68 16 106/60 90 L 09/17/22 00:00 97.9 F 79 17 110/58 90 L 09/16/22 20:30 98.9 F 91 H 16 113/58 91 L Pain Assessment - Last Documented Pain Intensity 5 Pain Scale Used 0-10 Pain Scale Intake and Output: Intake & Output 09/15/22 09/16/22 09/17/22 09/18/22 11:59 11:59 11:59 11:59 Intake Total 0 3063 Output Total 2350 645 Balance 0 713 -645 Weight 135.1 kg Lab Results: Lab Results-Last 24 Hours 09/17/22 09/17/22 Range/Units 04:23 04:23 WBC 15.4 H (4.0-10.5) x10^3/uL RBC 3.93 L (4.1-5.6) x10^6/uL Hgb 11.8 L (12.5-18.0) g/dL Hct 36.5 L (42-50) % MCV 92.9 (78-100) fL MCH 30.0 (26-32) pg MCHC 32.3 (32-36) g/dL RDW 13.1 (11.5-14.0) % Plt Count 200 (150-450) x10^3/uL MPV 10.5 (7.5-11.0) fL Gran % 82.5 H (36.0-66.0) % Immature Gran % (Auto) 0.5 H (0.00-0.4) % Nucleat RBC Rel Count 0.0 (0.00-0.1) % Eos # (Auto) 0 (0-0.5) x10^3/uL Immature Gran # (Auto) 0.07 H (0.00-0.03) x10^3u/L Absolute Lymphs (auto) 1.16 (1.0-4.6) x10^3/uL Absolute Monos (auto) 1.43 H (0.0-1.3) x10^3/uL Absolute Nucleated RBC 0.00 (0.00-0.01) x10^3u/L Lymphocytes % 7.5 L (24.0-44.0) % Monocytes % 9.3 (0.0-12.0) % Eosinophils % 0.0 (0.00-5.0) % Basophils % 0.2 (0.0-0.4) % Absolute Granulocytes 12.73 H (1.4-6.9) x10^3/uL Basophils # 0.03 (0-0.4) x10^3/uL Sodium 137 (137-145) mmol/L Potassium 4.2 (3.5-5.1) mmol/L Chloride 106 (98-107) mmol/L Carbon Dioxide 23 (22-30) mmol/L Anion Gap 12.2 (5-15) MEQ/L BUN 13 (9-20) mg/dL Creatinine 1.02 (0.66-1.25) mg/dL Estimated GFR > 60.0 ML/MIN Glucose 137 H (74-106) mg/dL Calcium 7.9 L (8.4-10.2) mg/dL Total Bilirubin 0.50 (0.2-1.3) mg/dL AST 25 (17-59) U/L ALT 32 (0-50) U/L Alkaline Phosphatase 55 (38-126) U/L Serum Total Protein 6.6 (6.3-8.2) g/dL Albumin 3.6 (3.5-5.0) g/dL Radiology Exams: Radiology Procedures Category Date Time Status ABDOMEN AND PELVIS W/0 CONTRAS [CT] Stat Exams 09/16/22 02:42 Completed Assessment/Plan (1) S/P appendectomy Current Visit: Yes Status: Acute Assessment & Plan: Does have EMMETT drain with serosanguinous fluid. Diet advance per surgery. Code(s): Z90.49 - ACQUIRED ABSENCE OF OTHER SPECIFIED PARTS OF DIGESTIVE TRACT (2) Leukocytosis Current Visit: Yes Status: Acute Qualifiers: Leukocytosis type: unspecified Qualified Code(s): D72.829 - Elevated white blood cell count, unspecified Assessment & Plan: still >15 today. recheck in .a.m. Code(s): D72.829 - ELEVATED WHITE BLOOD CELL COUNT, UNSPECIFIED (3) Hyperglycemia Current Visit: Yes Status: Acute Assessment & Plan: Will check a1c, no hx diabetes. Code(s): R73.9 - HYPERGLYCEMIA, UNSPECIFIED
[2022-09-18] MEDS: NORCO 5/325 MG PO PRN
[2022-09-18] MEDS: Zofran 4 MG/2 ML VIAL IV PRN ×3 (00:02→15:51)
[2022-09-18 04:57] LABS: Absolute Neutrophil Ct (ANC) 10.07 x10^3/uL (1.4-6.9); BASOPHIL % 0.3 % (0.0-0.4); Basophil (Absolute #) 0.04 x10^3/uL (0-0.4); Eosinophil (Absolute #) 0 x10^3/uL (0-0.5); Hematocrit 37.1 % (42-50); Hemoglobin 12.2 g/dL (12.5-18.0); IMMATURE GRAN # 0.09 x10^3u/L (0.00-0.03); IMMATURE GRAN % 0.7 % (0.00-0.4); Lymphocyte (Absolute #) 1.43 x10^3/uL (1.0-4.6); Lymphocytes % 11.1 % (24.0-44.0); Mean Cell Volume 91.4 fL (78-100); Mean Corpuscular Hgb Concent. 32.9 g/dL (32-36); Mean Platelet Volume 10.4 fL (7.5-11.0); Monocyte (Absolute #) 1.21 x10^3/uL (0.0-1.3); Monocytes % 9.4 % (0.0-12.0); Neutrophil % 78.5 % (36.0-66.0); Platelet Count 211 x10^3/uL (150-450); Red Blood Count 4.06 x10^6/uL (4.1-5.6); Red Cell Distribution Width 13.2 % (11.5-14.0); White Blood Count 12.8 x10^3/uL (4.0-10.5)
[2022-09-18 05:17] LABS: ALBUMIN 3.5 g/dL (3.5-5.0); ALKALINE PHOSPHATASE 62 U/L (38-126); ANION GAP 10.4 MEQ/L (5-15); BLOOD UREA NITROGEN 12 mg/dL (9-20); CHLORIDE 104 mmol/L (98-107); Calcium 7.8 mg/dL (8.4-10.2); Carbon Dioxide 24 mmol/L (22-30); Creatinine 1 0.86 mg/dL (0.66-1.25); EST GLOMERULAR FILTRATION RATE > 60.0 ML/MIN; Glucose 124 mg/dL (74-106); Potassium 3.7 mmol/L (3.5-5.1); SGOT/AST 25 U/L (17-59); SGPT/ALT 29 U/L (0-50); SODIUM 134 mmol/L (137-145); Total Protein 6.8 g/dL (6.3-8.2)
[2022-09-18] MEDS: PIPERACILLIN/TAZOBACTAM 3.375 GM in Sodium Chloride 100ML MINI-BAG PLUS 100 ML IV SCH ×6 (06:00→23:30)
--- NOTE | 2022-09-18 08:50 | PCM.NOTE ---
Date and Time: 09/18/2248 Subjective Assessment: Lashawn made pt nauseated, so he hasn't had pain meds all night. Feeling about the same, discomfort from gas. Has been up out of bed. Anna clear liquids. not passing much gas, and no BM. - Review of Systems Constitutional: No Fever Abdominal/Gastrointestinal: Abdominal Pain Objective Exam General Appearance: no apparent distress, obese Neurologic Exam: alert, oriented x 3, cooperative Skin Exam: normal color, warm, dry, No rash Wound Assessment: Skin/Wound Assessment Wound/Incision Assessment Start: 09/17/22 20:17 Text: Status: Active Freq: Q6H Protocol: Document 09/18/22 02:00 JULIANA (Rec: 09/18/22 02:10 JULIANA [id number]) Wound/Incision Assessment Abdomen Wound Assessment Shift Assessment Wound Type Puncture Wound Stage Non Pressure Wound Dressing Status Dry & Intact Drainage Amount None Comment 3 PUNTURE SITES, DRESSINGS CLEAN, DRY AND INTACT Left Lower Abdomen Drain Type EMMETT drain Drainage Description Serosanguineous Odor None/Absent Eye Exam: eyes nml inspection Ears, Nose, Throat Exam: moist mucous membranes Neck Exam: normal inspection Respiratory Exam: normal breath sounds, lungs clear, No crackles/rales, No rhonchi, No wheezing Cardiovascular Exam: regular rate/rhythm, normal heart sounds, No murmur Gastrointestinal/Abdomen Exam: soft, tenderness (generalized, mild), distention, other (EMMETT drain in place, 3/4 full of serosanguinous fluid), No normal bowel sounds (slightly high pitched but improved from yesterday.), No mass, No guarding, No rebound Back Exam: normal inspection, No rash OBJECTIVE DATA Vital Signs: Vital Signs - 24 hr Temp Pulse Resp BP Pulse Ox 09/18/22 04:43 98.4 F 84 17 150/82 90 L 09/17/22 23:03 98.2 F 89 18 149/72 92 L 09/17/22 19:32 97.8 F 85 18 130/68 92 L 09/17/22 16:22 98.0 F 87 16 137/67 93 L 09/17/22 10:57 98.2 F 83 16 117/67 91 L 09/17/22 09:18 81 17 121/66 Pain Assessment - Last Documented Pain Intensity 4 Pain Scale Used 0-10 Pain Scale Intake and Output: Intake & Output 09/15/22 09/16/22 09/17/22 09/18/22 11:59 11:59 11:59 11:59 Intake Total 0 3063 3166 Output Total 2350 750 Balance 0 713 2916 Weight 135.1 kg Lab Results: Lab Results-Last 24 Hours 09/18/22 09/18/22 09/18/22 Range/Units 04:22 04:22 04:22 WBC 12.8 H (4.0-10.5) x10^3/uL RBC 4.06 L (4.1-5.6) x10^6/uL Hgb 12.2 L (12.5-18.0) g/dL Hct 37.1 L (42-50) % MCV 91.4 (78-100) fL MCH 30.0 (26-32) pg MCHC 32.9 (32-36) g/dL RDW 13.2 (11.5-14.0) % Plt Count 211 (150-450) x10^3/uL MPV 10.4 (7.5-11.0) fL Gran % 78.5 H (36.0-66.0) % Immature Gran % (Auto) 0.7 H (0.00-0.4) % Nucleat RBC Rel Count 0.0 (0.00-0.1) % Eos # (Auto) 0 (0-0.5) x10^3/uL Immature Gran # (Auto) 0.09 H (0.00-0.03) x10^3u/L Absolute Lymphs (auto) 1.43 (1.0-4.6) x10^3/uL Absolute Monos (auto) 1.21 (0.0-1.3) x10^3/uL Absolute Nucleated RBC 0.00 (0.00-0.01) x10^3u/L Lymphocytes % 11.1 L (24.0-44.0) % Monocytes % 9.4 (0.0-12.0) % Eosinophils % 0.0 (0.00-5.0) % Basophils % 0.3 (0.0-0.4) % Absolute Granulocytes 10.07 H (1.4-6.9) x10^3/uL Basophils # 0.04 (0-0.4) x10^3/uL Sodium 134 L (137-145) mmol/L Potassium 3.7 (3.5-5.1) mmol/L Chloride 104 (98-107) mmol/L Carbon Dioxide 24 (22-30) mmol/L Anion Gap 10.4 (5-15) MEQ/L BUN 12 (9-20) mg/dL Creatinine 0.86 (0.66-1.25) mg/dL Estimated GFR > 60.0 ML/MIN Glucose 124 H (74-106) mg/dL Hemoglobin A1c 5.52 (4.5-6.0) % Calcium 7.8 L (8.4-10.2) mg/dL Total Bilirubin 0.50 (0.2-1.3) mg/dL AST 25 (17-59) U/L ALT 29 (0-50) U/L Alkaline Phosphatase 62 (38-126) U/L Serum Total Protein 6.8 (6.3-8.2) g/dL Albumin 3.5 (3.5-5.0) g/dL Assessment/Plan (1) S/P appendectomy Current Visit: Yes Status: Acute Assessment & Plan: POD #2, doing well overall, just discomfort from gas. Bowel sounds are improved. WBC improved, down to 12.8 from 15.4. on zosyn. Code(s): Z90.49 - ACQUIRED ABSENCE OF OTHER SPECIFIED PARTS OF DIGESTIVE TRACT (2) Leukocytosis Current Visit: Yes Status: Acute Qualifiers: Leukocytosis type: unspecified Qualified Code(s): D72.829 - Elevated white blood cell count, unspecified Code(s): D72.829 - ELEVATED WHITE BLOOD CELL COUNT, UNSPECIFIED (3) Hyperglycemia Current Visit: Yes Status: Acute Assessment & Plan: a1c nl, 5.52. Code(s): R73.9 - HYPERGLYCEMIA, UNSPECIFIED
[2022-09-18] MEDS: CLARITIN 10 MG PO SCH (08:55)
[2022-09-18] MEDS: Zestril 20 MG PO SCH (08:55)
[2022-09-18] MEDS: ULTRAM 50 MG PO PRN ×2 (08:55→21:38)
[2022-09-18] MEDS: Mylicon 80MG PO PRN ×2 (08:57→21:52)
[2022-09-18] MEDS: Sodium Chloride 0.9% 1000 ML 1,000 ML IV SCH ×2 (11:20→23:29)
[2022-09-19] MEDS: ULTRAM 50 MG PO PRN ×3 (04:32→22:00)
[2022-09-19 04:57] LABS: Absolute Neutrophil Ct (ANC) 7.19 x10^3/uL (1.4-6.9); BASOPHIL % 0.5 % (0.0-0.4); Basophil (Absolute #) 0.05 x10^3/uL (0-0.4); Eosinophil (Absolute #) 0 x10^3/uL (0-0.5); Hematocrit 36.4 % (42-50); Hemoglobin 12.2 g/dL (12.5-18.0); IMMATURE GRAN # 0.05 x10^3u/L (0.00-0.03); IMMATURE GRAN % 0.5 % (0.00-0.4); Lymphocyte (Absolute #) 1.63 x10^3/uL (1.0-4.6); Lymphocytes % 16.4 % (24.0-44.0); Mean Cell Volume 90.8 fL (78-100); Mean Corpuscular Hemoglobin 30.4 pg (26-32); Mean Corpuscular Hgb Concent. 33.5 g/dL (32-36); Mean Platelet Volume 9.8 fL (7.5-11.0); Monocyte (Absolute #) 1.02 x10^3/uL (0.0-1.3); Monocytes % 10.3 % (0.0-12.0); Neutrophil % 72.3 % (36.0-66.0); Platelet Count 241 x10^3/uL (150-450); Red Blood Count 4.01 x10^6/uL (4.1-5.6); Red Cell Distribution Width 12.8 % (11.5-14.0); White Blood Count 9.9 x10^3/uL (4.0-10.5)
[2022-09-19 05:27] LABS: ALBUMIN 3.4 g/dL (3.5-5.0); ALKALINE PHOSPHATASE 71 U/L (38-126); ANION GAP 11.5 MEQ/L (5-15); BLOOD UREA NITROGEN 11 mg/dL (9-20); CHLORIDE 103 mmol/L (98-107); Calcium 7.8 mg/dL (8.4-10.2); Carbon Dioxide 24 mmol/L (22-30); EST GLOMERULAR FILTRATION RATE > 60.0 ML/MIN; Glucose 117 mg/dL (74-106); Potassium 3.5 mmol/L (3.5-5.1); SGOT/AST 32 U/L (17-59); SGPT/ALT 38 U/L (0-50); SODIUM 135 mmol/L (137-145); Total Protein 6.6 g/dL (6.3-8.2)
[2022-09-19] MEDS: PIPERACILLIN/TAZOBACTAM 3.375 GM in Sodium Chloride 100ML MINI-BAG PLUS 100 ML IV SCH ×3 (06:07→17:05)
[2022-09-19] MEDS: CLARITIN 10 MG PO SCH (07:58)
[2022-09-19] MEDS: Zestril 20 MG PO SCH (07:59)
--- NOTE | 2022-09-19 09:06 | PCM.NOTE ---
Date and Time: 09/19/22903 Subjective Assessment: patient had a bowel movement last night, tolerating po and pain is well controlled. no problems or concerns. Objective Exam General Appearance: no apparent distress Neurologic Exam: alert, oriented x 3 Wound Assessment: Skin/Wound Assessment Wound/Incision Assessment Start: 09/17/22 20:17 Text: Status: Active Freq: Q6H Protocol: Document 09/19/22 08:00 RB (Rec: 09/19/22 08:11 RB [id number]) Wound/Incision Assessment Abdomen Wound Assessment Shift Assessment Wound Type Puncture Wound Stage Non Pressure Wound Dressing Status Dry & Intact Drainage Amount None Comment 3 PUNTURE SITES, DRESSINGS CLEAN, DRY AND INTACT, EMMETT DRAIN WITH MILD YELLOW TO CLEAR DRAINAGE NOTED Left Lower Abdomen Drain Type EMMETT drain Drainage Description Serosanguineous Odor None/Absent Wound Photo Photo Taken No Respiratory Exam: normal breath sounds, lungs clear, No respiratory distress Cardiovascular Exam: regular rate/rhythm, normal heart sounds Gastrointestinal/Abdomen Exam: soft, normal bowel sounds, other (dressings clean, dry, intact. scant serosang. fluid in EMMETT drain) Extremity Exam: normal inspection, normal range of motion OBJECTIVE DATA Vital Signs: Vital Signs - 24 hr Temp Pulse Resp BP Pulse Ox 09/19/22 07:07 98.4 F 76 18 132/67 91 L 09/19/22 04:28 98.2 F 74 19 141/91 94 L 09/18/22 23:46 98.2 F 77 17 138/86 91 L 09/18/22 20:24 98.2 F 79 18 140/87 93 L 09/18/22 16:22 97.5 F 81 18 156/87 92 L 09/18/22 13:00 98.2 F 85 17 141/84 91 L Pain Assessment - Last Documented Pain Intensity 4 Pain Scale Used 0-10 Pain Scale Intake and Output: Intake & Output 09/16/22 09/17/22 09/18/22 09/19/22 11:59 11:59 11:59 11:59 Intake Total 0 3063 3266 3333 Output Total 2350 870 190 Balance 0 713 2396 3143 Weight 135.1 kg Lab Results: Lab Results-Last 24 Hours 09/19/22 09/19/22 Range/Units 04:50 04:50 WBC 9.9 (4.0-10.5) x10^3/uL RBC 4.01 L (4.1-5.6) x10^6/uL Hgb 12.2 L (12.5-18.0) g/dL Hct 36.4 L (42-50) % MCV 90.8 (78-100) fL MCH 30.4 (26-32) pg MCHC 33.5 (32-36) g/dL RDW 12.8 (11.5-14.0) % Plt Count 241 (150-450) x10^3/uL MPV 9.8 (7.5-11.0) fL Gran % 72.3 H (36.0-66.0) % Immature Gran % (Auto) 0.5 H (0.00-0.4) % Nucleat RBC Rel Count 0.0 (0.00-0.1) % Eos # (Auto) 0 (0-0.5) x10^3/uL Immature Gran # (Auto) 0.05 H (0.00-0.03) x10^3u/L Absolute Lymphs (auto) 1.63 (1.0-4.6) x10^3/uL Absolute Monos (auto) 1.02 (0.0-1.3) x10^3/uL Absolute Nucleated RBC 0.00 (0.00-0.01) x10^3u/L Lymphocytes % 16.4 L (24.0-44.0) % Monocytes % 10.3 (0.0-12.0) % Eosinophils % 0.0 (0.00-5.0) % Basophils % 0.5 (0.0-0.4) % Absolute Granulocytes 7.19 H (1.4-6.9) x10^3/uL Basophils # 0.05 (0-0.4) x10^3/uL Sodium 135 L (137-145) mmol/L Potassium 3.5 (3.5-5.1) mmol/L Chloride 103 (98-107) mmol/L Carbon Dioxide 24 (22-30) mmol/L Anion Gap 11.5 (5-15) MEQ/L BUN 11 (9-20) mg/dL Creatinine 0.90 (0.66-1.25) mg/dL Estimated GFR > 60.0 ML/MIN Glucose 117 H (74-106) mg/dL Calcium 7.8 L (8.4-10.2) mg/dL Total Bilirubin 0.50 (0.2-1.3) mg/dL AST 32 (17-59) U/L ALT 38 (0-50) U/L Alkaline Phosphatase 71 (38-126) U/L Serum Total Protein 6.6 (6.3-8.2) g/dL Albumin 3.4 L (3.5-5.0) g/dL Multi-Disciplinary Progress Notes: Multi-Disciplinary Progress Notes 09/18/22 11:00 Case Management Note by Juliette Brand Spoke with pt. States his plan to return home with is unchanged. States has no new needs at discharge. Initialized on 09/18/22 11:00 - END OF NOTE Assessment/Plan (1) Ruptured appendicitis Current Visit: Yes Status: Acute Assessment & Plan: wbc normalized, tolerating diet and clinically doing quite well. continue zosyn, dispo per surgery recommendations. Code(s): K35.32 - ACUTE APPENDICITIS WITH PERF AND LOC PERITONITIS, W/O ABSCS
[2022-09-19] MEDS: Sodium Chloride 0.9% 1000 ML 1,000 ML IV SCH ×2 (11:20→22:41)
[2022-09-20] MEDS: PIPERACILLIN/TAZOBACTAM 3.375 GM in Sodium Chloride 100ML MINI-BAG PLUS 100 ML IV SCH ×5 (00:04→23:38)
[2022-09-20 05:10] LABS: Absolute Neutrophil Ct (ANC) 7.11 x10^3/uL (1.4-6.9); BASOPHIL % 0.8 % (0.0-0.4); Basophil (Absolute #) 0.08 x10^3/uL (0-0.4); Eosinophil % 0.1 % (0.00-5.0); Eosinophil (Absolute #) 0.01 x10^3/uL (0-0.5); Hematocrit 35.4 % (42-50); IMMATURE GRAN # 0.09 x10^3u/L (0.00-0.03); IMMATURE GRAN % 0.9 % (0.00-0.4); Lymphocyte (Absolute #) 1.61 x10^3/uL (1.0-4.6); Lymphocytes % 16.1 % (24.0-44.0); Mean Cell Volume 90.3 fL (78-100); Mean Corpuscular Hemoglobin 30.6 pg (26-32); Mean Corpuscular Hgb Concent. 33.9 g/dL (32-36); Mean Platelet Volume 9.5 fL (7.5-11.0); Monocyte (Absolute #) 1.08 x10^3/uL (0.0-1.3); Monocytes % 10.8 % (0.0-12.0); Neutrophil % 71.3 % (36.0-66.0); Platelet Count 245 x10^3/uL (150-450); Red Blood Count 3.92 x10^6/uL (4.1-5.6); Red Cell Distribution Width 12.7 % (11.5-14.0)
[2022-09-20 05:44] LABS: ALBUMIN 3.1 g/dL (3.5-5.0); ALKALINE PHOSPHATASE 66 U/L (38-126); ANION GAP 9.6 MEQ/L (5-15); BLOOD UREA NITROGEN 8 mg/dL (9-20); CHLORIDE 102 mmol/L (98-107); Calcium 7.6 mg/dL (8.4-10.2); Carbon Dioxide 25 mmol/L (22-30); Creatinine 1 0.82 mg/dL (0.66-1.25); EST GLOMERULAR FILTRATION RATE > 60.0 ML/MIN; Glucose 105 mg/dL (74-106); Potassium 3.3 mmol/L (3.5-5.1); SGOT/AST 34 U/L (17-59); SGPT/ALT 43 U/L (0-50); SODIUM 133 mmol/L (137-145)
--- NOTE | 2022-09-20 07:41 | PROG NOTE ---
CONSULT DATE: 09/19/2022 DATE: 09/19/2022 HISTORY: Today is postoperative day #3, ruptured appendix. The family is present and one daughter youngest daughter. The patient is doing basically well. He looks a little more vigorous. He is drinking more liquids. His drain is clear. His abdomen is moderately distended. We will leave him on full liquids as he is currently making progress. He is on IV fluid, IV antibiotics.
--- NOTE | 2022-09-20 08:47 | PCM.NOTE ---
Date and Time: 09/20/22 0844 Subjective Assessment: doing better today, able to eat more. pain is well controlled, he had another bowel movement last night. no fever Objective Exam General Appearance: no apparent distress Neurologic Exam: alert, oriented x 3 Wound Assessment: Skin/Wound Assessment Wound/Incision Assessment Start: 09/17/22 20:17 Text: Status: Active Freq: Q6H Protocol: Document 09/20/22 05:00 LB (Rec: 09/20/22 05:29 LB [id number]) Wound/Incision Assessment Abdomen Wound Assessment Shift Assessment Wound Type Puncture Wound Stage Non Pressure Wound Dressing Status Dry & Intact Drainage Amount None Comment dressing CDI Left Lower Abdomen Drain Type EMMETT drain Drainage Description Serous Odor None/Absent Drainage Amount (ml) 90 Wound Photo Photo Taken No Respiratory Exam: normal breath sounds, lungs clear, No respiratory distress Cardiovascular Exam: regular rate/rhythm, normal heart sounds Gastrointestinal/Abdomen Exam: soft, normal bowel sounds, distention, No guarding, No rebound Extremity Exam: normal inspection, normal range of motion OBJECTIVE DATA Vital Signs: Vital Signs - 24 hr Temp Pulse Resp BP Pulse Ox 09/20/22 07:16 97.5 F 71 18 123/69 93 L 09/20/22 04:17 98.1 F 67 18 148/91 94 L 09/19/22 23:47 98.4 F 70 16 152/90 94 L 09/19/22 19:43 97.8 F 76 17 122/77 95 09/19/22 16:16 98.2 F 71 18 146/85 93 L 09/19/22 11:16 98.4 F 69 18 147/87 92 L Pain Assessment - Last Documented Pain Intensity 0 Pain Scale Used 0-10 Pain Scale Intake and Output: Intake & Output 09/17/22 09/18/22 09/19/22 09/20/22 11:59 11:59 11:59 11:59 Intake Total 3063 3266 3453 3591 Output Total 2350 870 190 320 Balance 713 2396 3263 3271 Weight 135.1 kg Lab Results: Lab Results-Last 24 Hours 09/20/22 09/20/22 Range/Units 05:13 05:13 WBC 10.0 (4.0-10.5) x10^3/uL RBC 3.92 L (4.1-5.6) x10^6/uL Hgb 12.0 L (12.5-18.0) g/dL Hct 35.4 L (42-50) % MCV 90.3 (78-100) fL MCH 30.6 (26-32) pg MCHC 33.9 (32-36) g/dL RDW 12.7 (11.5-14.0) % Plt Count 245 (150-450) x10^3/uL MPV 9.5 (7.5-11.0) fL Gran % 71.3 H (36.0-66.0) % Immature Gran % (Auto) 0.9 H (0.00-0.4) % Nucleat RBC Rel Count 0.0 (0.00-0.1) % Eos # (Auto) 0.01 (0-0.5) x10^3/uL Immature Gran # (Auto) 0.09 H (0.00-0.03) x10^3u/L Absolute Lymphs (auto) 1.61 (1.0-4.6) x10^3/uL Absolute Monos (auto) 1.08 (0.0-1.3) x10^3/uL Absolute Nucleated RBC 0.00 (0.00-0.01) x10^3u/L Lymphocytes % 16.1 L (24.0-44.0) % Monocytes % 10.8 (0.0-12.0) % Eosinophils % 0.1 (0.00-5.0) % Basophils % 0.8 (0.0-0.4) % Absolute Granulocytes 7.11 H (1.4-6.9) x10^3/uL Basophils # 0.08 (0-0.4) x10^3/uL Sodium 133 L (137-145) mmol/L Potassium 3.3 L (3.5-5.1) mmol/L Chloride 102 (98-107) mmol/L Carbon Dioxide 25 (22-30) mmol/L Anion Gap 9.6 (5-15) MEQ/L BUN 8 L (9-20) mg/dL Creatinine 0.82 (0.66-1.25) mg/dL Estimated GFR > 60.0 ML/MIN Glucose 105 (74-106) mg/dL Calcium 7.6 L (8.4-10.2) mg/dL Total Bilirubin 0.50 (0.2-1.3) mg/dL AST 34 (17-59) U/L ALT 43 (0-50) U/L Alkaline Phosphatase 66 (38-126) U/L Serum Total Protein 6.0 L (6.3-8.2) g/dL Albumin 3.1 L (3.5-5.0) g/dL Multi-Disciplinary Progress Notes: Multi-Disciplinary Progress Notes 09/19/22 12:10 Case Management Note by Kendra Sanders S/W PATIENT- HE CONTINUES TO DENY ANY NEW NEEDS AT TIME OF DC. HE PLANS TO RETURN HOME WITH HIS TO ASSIST HIM AT TIME OF DC Initialized on 09/19/22 12:10 - END OF NOTE Assessment/Plan (1) Ruptured appendicitis Current Visit: Yes Status: Acute Assessment & Plan: doing well, continue IV zosyn. today is postop day #4. disposition pending surgery recommendation Code(s): K35.32 - ACUTE APPENDICITIS WITH PERF AND LOC PERITONITIS, W/O ABSCS
[2022-09-20] MEDS: ULTRAM 50 MG PO PRN ×2 (09:35→21:20)
[2022-09-20] MEDS: CLARITIN 10 MG PO SCH (09:36)
[2022-09-20] MEDS: Zestril 20 MG PO SCH (09:36)
[2022-09-20] MEDS: Sodium Chloride 0.9% 1000 ML 1,000 ML IV SCH (11:15)
[2022-09-21] MEDS: Sodium Chloride 0.9% 1000 ML 1,000 ML IV SCH (02:25)
[2022-09-21 04:59] LABS: Hematocrit 38.4 % (42-50); Hemoglobin 12.8 g/dL (12.5-18.0); Mean Cell Volume 89.9 fL (78-100); Mean Corpuscular Hgb Concent. 33.3 g/dL (32-36); Mean Platelet Volume 9.8 fL (7.5-11.0); Platelet Count 275 x10^3/uL (150-450); Red Blood Count 4.27 x10^6/uL (4.1-5.6); Red Cell Distribution Width 12.7 % (11.5-14.0); White Blood Count 10.8 x10^3/uL (4.0-10.5)
[2022-09-21 05:18] LABS: ALBUMIN 3.3 g/dL (3.5-5.0); ALKALINE PHOSPHATASE 72 U/L (38-126); ANION GAP 9.7 MEQ/L (5-15); BLOOD UREA NITROGEN 7 mg/dL (9-20); CHLORIDE 102 mmol/L (98-107); Calcium 7.8 mg/dL (8.4-10.2); Carbon Dioxide 26 mmol/L (22-30); Creatinine 1 0.88 mg/dL (0.66-1.25); EST GLOMERULAR FILTRATION RATE > 60.0 ML/MIN; Glucose 103 mg/dL (74-106); Potassium 3.3 mmol/L (3.5-5.1); SGOT/AST 38 U/L (17-59); SGPT/ALT 51 U/L (0-50); SODIUM 135 mmol/L (137-145); Total Protein 6.3 g/dL (6.3-8.2)
[2022-09-21] MEDS: PIPERACILLIN/TAZOBACTAM 3.375 GM in Sodium Chloride 100ML MINI-BAG PLUS 100 ML IV SCH (06:04)
[2022-09-21 07:20] VITALS: O2SAT 94
[2022-09-21 07:26] LABS: ATYPICAL LYMPHS 3 %; Eosinophil 4 % (0.00-3.0); Lymphocytes 26 % (24-44); Monocyte 12 % (0.0-12.0); Neutrophils 55 % (36.-66.); Total Cells Counted 100
[2022-09-21 07:27] LABS: Platelet Estimate NORMAL (NORMAL)
--- NOTE | 2022-09-21 08:05 | PROG NOTE ---
DATE: 09/20/2022 HISTORY: Postoperative day #4 ruptured appendix. He was seen about 3:00 p.m. evening. He was alert and oriented. He is doing reasonably well. He said he was a little all in better. His abdomen was mildly distended. The Simeon-Wright drain was clear. He may be able to go on Saturday.
[2022-09-21] MEDS: CLARITIN 10 MG PO SCH (08:58)
[2022-09-21] MEDS: Zestril 20 MG PO SCH (08:58)
--- NOTE | 2022-09-21 09:16 | PCM.DS ---
Discharge Summary Date of Admission: 09/17/22 09:30 Admitting Physician: DENYS ALEJANDRA DO Consults: Consults on Case 09/16/22 05:16 Consult Surgery ROUTINE Primary Care Provider: GHADA DONAHUE ANNA Allergies Allergies No Known Drug Allergies Allergy (Verified 09/16/22 02:37) Hospital Summary - Hospital Course Hospital Course: patient admitted with acute appendicitis, had laparoscopic appendectomy with Dr Robbin Wilson and have ruptured appendix. he is tolerating po intake, has been continued on zosyn, no fever, normal white count and is ambulating and passing stool. he has progressed well postoperatively. - Vitals & Intake/Output Vital Signs: Vital Signs Temperature 98.6 F 09/21/22 07:19 Pulse Rate 62 09/21/22 07:19 Respiratory Rate 18 09/21/22 07:19 Blood Pressure 156/89 09/21/22 07:19 O2 Sat by Pulse Oximetry 94 L 09/21/22 07:19 Intake & Output: Intake & Output 09/18/22 09/19/22 09/20/22 09/21/22 11:59 11:59 11:59 11:59 Intake Total 3266 3453 3591 3318 Output Total 870 190 390 220 Balance 2396 3263 3201 3098 Weight 135.1 kg - Lab Result Diagrams: 09/21/22 04:15 09/21/22 04:15 Lab Results-Last 24 Hrs: Lab Results-Last 24 Hours 09/16/22 09/21/22 09/21/22 Range/Units 12:14 04:15 04:15 WBC 10.8 H (4.0-10.5) x10^3/uL RBC 4.27 (4.1-5.6) x10^6/uL Hgb 12.8 (12.5-18.0) g/dL Hct 38.4 L (42-50) % MCV 89.9 (78-100) fL MCH 30.0 (26-32) pg MCHC 33.3 (32-36) g/dL RDW 12.7 (11.5-14.0) % Plt Count 275 (150-450) x10^3/uL MPV 9.8 (7.5-11.0) fL Segmented Neutrophils 55 (36.-66.) % Lymphocytes (Manual) 26 (24-44) % Monocytes (Manual) 12 (0.0-12.0) % Eosinophils (Manual) 4 H (0.00-3.0) % Atypical Lymphocytes 3 % Platelet Estimate NORMAL (NORMAL) RBC Morphology NORMAL Sodium 135 L (137-145) mmol/L Potassium 3.3 L (3.5-5.1) mmol/L Chloride 102 (98-107) mmol/L Carbon Dioxide 26 (22-30) mmol/L Anion Gap 9.7 (5-15) MEQ/L BUN 7 L (9-20) mg/dL Creatinine 0.88 (0.66-1.25) mg/dL Estimated GFR > 60.0 ML/MIN Glucose 103 (74-106) mg/dL Calcium 7.8 L (8.4-10.2) mg/dL Total Bilirubin 0.50 (0.2-1.3) mg/dL AST 38 (17-59) U/L ALT 51 H (0-50) U/L Alkaline Phosphatase 72 (38-126) U/L Serum Total Protein 6.3 (6.3-8.2) g/dL Albumin 3.3 L (3.5-5.0) g/dL Surg PTH Specimen SEE COMMENTS Micro Results-Entire Visit: Microbiology 09/16/22 12:14 Urine Culture - Final Catherized NO GROWTH - Procedures and Test Procedures and Tests throughout Hospitalization: Therapy Orders & Screens 09/16/22 09:39 EKG STAT Comment: Diagnosis: acute appendicitis 09/16/22 19:14 BiPap/CPAP ROUTINE Comment: Home unit per home settings Diagnosis: acute appendicitis Discharge Exam General Appearance: no apparent distress, obese Neurologic Exam: alert, oriented x 3 Respiratory Exam: normal breath sounds, lungs clear, No respiratory distress Cardiovascular Exam: regular rate/rhythm, normal heart sounds Gastrointestinal/Abdomen Exam: soft, normal bowel sounds, distention, other (EMMETT drain with clear drainage, approx 100mL emptied per nursing), No guarding, No rebound Extremity Exam: normal inspection, normal range of motion Skin Exam: normal color, warm, dry Wound Assessment: Skin/Wound Assessment Wound/Incision Assessment Start: 09/17/22 20:17 Text: Status: Active Freq: Q6H Protocol: Document 09/21/22 05:00 LB (Rec: 09/21/22 06:19 LB [id number]) Wound/Incision Assessment Abdomen Wound Assessment Shift Assessment Wound Type Puncture Wound Stage Non Pressure Wound Dressing Status Dry & Intact Drainage Amount None Comment dressing CDI Left Lower Abdomen Drain Type EMMETT drain Drainage Description Serous Odor None/Absent Wound Photo Photo Taken No Final Diagnosis/Problem List - Final Discharge Diagnosis/Problem (1) Ruptured appendicitis Current Visit: Yes Status: Acute Assessment & Plan: doing well, home today if ok with surgery. Code(s): K35.32 - ACUTE APPENDICITIS WITH PERF AND LOC PERITONITIS, W/O ABSCS - Discharge Disposition: Home, Self-Care Condition: Stable Prescriptions: New Amox Tr/Potass Clav. 875 mg [Augmentin 875-125 Tablet] 875 mg PO BID #14 tablet Hydrocodone/Acetaminophen [Hydrocodone-Acetamin 7.5-325] 1 each PO Q6H PRN PRN #28 tablet MDD 4 PRN Reason: Pain Continue Lisinopril 20 mg [Zestril 20 MG] 20 mg PO DAILY Follow up with: GHADA DONAHUE MD [Primary Care Provider] - TONY WILSON MD [ACTIVE STAFF] -
[2022-09-21 11:43] VITALS: BP 170/90; PULSE 71
== END 2022-09-21 12:25 | disposition home or self-care (01) | DRG 340 ==
LOC: ED 02:11 → MED SURG 05:37 → ED 09-17 02:11 → MED SURG 09-17 05:37 → OBSVTOIN 09-17 09:30
PROVIDERS: ADMIT Family Medicine; ATTEND Family Medicine
PROC: 0DTJ4ZZ Resection of Appendix, Percutaneous Endoscopic Approach (ICD-10-PCS; principal; 2022-09-16)
DX: K35.32 Acute appendicitis with perforation, localized peritonitis, and gangrene, without abscess (principal); I10 Essential (primary) hypertension; D72.829 Elevated white blood cell count, unspecified; R73.9 Hyperglycemia, unspecified; Z79.899 Other long term (current) drug therapy; Z20.828 Contact with and (suspected) exposure to other viral communicable diseases
CPT/HCPCS: 0241U; 36000; 36415; 44970; 74176; 80053; 81001; 82150; 83036; 83690; 85025; 87086; 93005; 96360; 96365; 96374; 96375; 99285; 99291; 99140; G0378; J0694; J0696; J1100; J1170; J1885; J2405; J2704; J3010; A9270-GY